=== PATIENT | female | born 1955 | race Caucasian/White ===

== ENCOUNTER 2017-02-15 14:17 | Emergency (ER) | payer BC ==
[~2017-02-15] VITALS: Ht 172.7 cm; Wt 83.7 kg
[2017-02-15 16:15] LABS: EOSINOPHIL (%) 2.8 % (0-5); EOSINOPHIL COUNT 0.2 K/uL (0-0.3); HEMATOCRIT 40.2 % (36.0-46.0); IMMATURE GRANULOCYTE (%) 0.3 % (0.0-0.7); INSTRUMENT ABS NEUTROPHIL CT 2.8 K/uL; MCH 31.1 PG (29.0-34.0); MCHC 33.3 G/DL (30.0-36.0); MCV 93.3 FL (83-99); MONOCYTE (%) 5.2 % (3-12); MONOCYTE COUNT 0.3 K/uL (0-0.8); NEUTROPHIL COUNT 2.8 K/uL (1.8-6.4); PLATELET COUNT 228 K/uL (156-360); RBC DIS.WIDTH-CV 12.4 % (11.8-14.6); RBC DIS.WIDTH-SD 43.3 % (39-53); RED BLOOD COUNT 4.31 M/uL (3.80-5.20); WHITE BLOOD COUNT 6.4 K/uL (4.1-10.2)
[2017-02-15 16:23] LABS: CHLORIDE 106 mEq/L (99-109); POTASSIUM 4.1 mEq/L (3.7-5.4); SODIUM 139 mEq/L (136-147)
[2017-02-15 16:26] LABS: GLUCOSE 86 mg/dL (70-99)
[2017-02-15 16:27] LABS: ANION GAP 8 MEQ/L (2-14)
[2017-02-15 16:28] LABS: TOTAL BILIRUBIN 0.3 mg/dL (0.0-1.0)
[2017-02-15 16:29] LABS: ALKALINE PHOSPHATASE 64 IU/L (3-129); GFR ESTIMATE (CALCULATED) > 59 mL/min/
[2017-02-15 16:30] LABS: UREA NITROGEN (BUN) 15 mg/dL (9-23)
[2017-02-15] MEDS ORDERED: RIBOFLAVIN400 MG PO (18:28)
[2017-02-15] MEDS ORDERED: FIORICET,ESG1 TABLET PO (18:28)
[2017-02-15 18:48] VITALS: BP 122/67
== END 2017-02-15 18:49 | disposition home or self-care (01) ==
LOC: EME 14:17
PROVIDERS: Emergency Medicine
DX: G43.109 Migraine with aura, not intractable, without status migrainosus (principal); Z88.1 Allergy status to other antibiotic agents
CPT/HCPCS: 70450; 80053; 85025; 99281; 99285; J2765; J7030

== ENCOUNTER 2017-08-01 09:13 | Emergency (ER) | payer BC ==
[~2017-08-01] VITALS: Ht 172.7 cm; Wt 83.3 kg
[~2017-08-01 09:13] MED LIST: FIORICET,ESG1 TABLET PO; RIBOFLAVIN400 MG PO
[2017-08-01 09:49] LABS: BASOPHIL (%) 0.3 % (0-1); EOSINOPHIL (%) 0.6 % (0-5); HEMATOCRIT 37.8 % (36.0-46.0); HEMOGLOBIN 13.2 G/DL (11.9-15.5); LYMPHOCYTE (%) 57.5 % (15-42); MCHC 34.9 G/DL (30.0-36.0); MCV 91.5 FL (83-99); MONOCYTE (%) 9.3 % (3-12); MONOCYTE COUNT 0.3 K/uL (0-0.8); NEUTROPHIL (%) 32.3 % (45-76); NEUTROPHIL COUNT 1.1 K/uL (1.8-6.4); PLATELET COUNT 160 K/uL (156-360); RBC DIS.WIDTH-SD 43.8 % (39-53); RED BLOOD COUNT 4.13 M/uL (3.80-5.20); WHITE BLOOD COUNT 3.5 K/uL (4.1-10.2)
[2017-08-01 09:56] LABS: CHLORIDE 110 mEq/L (99-109); POTASSIUM 3.4 mEq/L (3.7-5.4); SODIUM 141 mEq/L (136-147)
[2017-08-01 09:57] LABS: GLUCOSE 98 mg/dL (70-99)
[2017-08-01 10:01] LABS: CREATININE 0.9 mg/dL (0.6-1.3); GFR ESTIMATE (CALCULATED) > 59 mL/min/
[2017-08-01 10:02] LABS: UREA NITROGEN (BUN) 19 mg/dL (9-23)
[2017-08-01] MEDS ORDERED: AZITHROMYCIN250 MG1 PO (11:56)
[2017-08-01] MEDS ORDERED: PREDNISONE20 MG PO (11:58)
[2017-08-01 12:45] VITALS: BP 112/92
== END 2017-08-01 13:19 | disposition home or self-care (01) ==
LOC: EME 09:13
PROVIDERS: Emergency Medicine Emergency Medical Services
DX: J45.901 Unspecified asthma with (acute) exacerbation (principal); J18.9 Pneumonia, unspecified organism; Z88.0 Allergy status to penicillin; Z88.5 Allergy status to narcotic agent; Z88.8 Allergy status to other drugs, medicaments and biological substances
CPT/HCPCS: 71046; 80048; 85025; 93005; 99281; 99284; J1100; J7040; J7644